=== PATIENT | male | born 1955 | race African-American/Black ===

== ENCOUNTER 2017-05-31 10:20 | Emergency (ER) | payer SELFPAY ==
[~2017-05-31] VITALS: Ht 193 cm; Wt 100.0 kg
[~2017-05-31 10:20] MED LIST: INDO25CA PO
[2017-05-31 10:21] VITALS: BP 134/78; PULSE 88; RESP 16; TEMP 98.8; O2SAT 99
[2017-05-31] MEDS ORDERED: PENI500T PO ×2 (11:20→11:43)
--- NOTE | 2017-05-31 11:25 | PD ---
HPI Chief Complaint: Oral / Dental Pain or Problem Time Seen by Provider: 11:00 Travel History International Travel<30 days: No Contact w/Intl Traveler<30days: No Traveled to known affect area: No History of Present Illness HPI Patient is a 62 y/o M who presents with10/10 throbbing pain at upper and lower molar on right side and left upper for 1 month. Bottom front gums sore. Only mouthwash helps. Hx of a few teeth pulled out for similar reason. Requests voucher for dental care. Endorses headache. Denies fever, chills, dysphagia or hoarseness. PFSH Past Medical History Arthritis: Yes Heart Rhythm Problems: No Cardiac Catheterization: No Cardiovascular Problems: No High Cholesterol: No Congestive Heart Failure: No Diabetes: No Past Surgical History Coronary Artery Bypass Graft: No Tonsillectomy: Yes Family History Family Myocardial Infarction: Yes Social History Alcohol Use: Yes (occasional) Tobacco Use: Yes (Smokes) Substance Use: No Allergies-Medications (Allergen,Severity, Reaction): Coded Allergies: No Known Allergies (Unverified , 11/27/13) Reported Meds & Prescriptions Reported Meds & Active Scripts Active Penicillin V Potassium 500 Mg Tab 500 Mg PO Q8H Indomethacin 25 Mg Cap 25 Mg PO TID 7 Days Take with food, milk, or antacids to decrease stomach adverse effects. Review of Systems Except as stated in HPI: all other systems reviewed are Neg Physical Exam Narrative GENERAL: SKIN: Warm and dry. HEAD: Atraumatic. Normocephalic. EYES: EOM normal. No scleral icterus. No injection or drainage. ENT: No nasal bleeding or discharge. NECK: Trachea midline. No JVD. CARDIOVASCULAR: Regular rate and rhythm. RESPIRATORY: No accessory muscle use. GASTROINTESTINAL: Abdomen non-distended MUSCULOSKELETAL: Normal ROM NEUROLOGICAL: Awake and alert. DENTAL: Lower frontal gums inflammed. Poor dentition noted at tooth number 29,3 , and 14. No signs of abscess, no obvious facial asymmetry, gingivitis. Data Data Last Documented VS Vital Signs Date Time Temp Pulse Resp B/P (MAP) Pulse Ox O2 Delivery O2 Flow Rate FiO2 05/31/17 10:21 98.8 88 16 134/78 (96) 99 Room Air MDM Medical Decision Making Medical Screen Exam Complete: Yes Emergency Medical Condition: Yes Differential Diagnosis Periodontitis v pulpitis v dental caries Narrative Course Patient with obvious poor dentition but no concern for obvious abscess, vitals within normal limits. Will set up with case management to obtain voucher to see dentist. Prescribe penicillin for 10 days to cover for infection. Diagnosis Primary Impression: Pain, dental Patient Instructions: General Instructions Additional Instructions: tylenol for pain, set up a dentist and primary physician, return with any emergent need Med/Other Pt SpecificInfo: Prescription(s) given Scripts Penicillin V Potassium (Penicillin V Potassium) 500 Mg Tab 500 MG PO Q8H for Infection, #10 TAB 0 Refills Prov: Fauzia Pena MD R1 05/31/17 Disposition: 01 DISCHARGE HOME Condition: Stable Fauzia Pena MD R1 May 31, 2017 11:25
== END 2017-05-31 12:39 | disposition home or self-care (01) ==
LOC: NEPE 10:20
DX: K08.89 Other specified disorders of teeth and supporting structures (principal); R51 Headache; Z72.0 Tobacco use; Z87.39 Personal history of other diseases of the musculoskeletal system and connective tissue
CPT/HCPCS: 99283

== ENCOUNTER 2017-10-27 09:13 | Emergency (ER) | payer SELFPAY ==
[~2017-10-27] VITALS: Ht 193 cm; Wt 100.0 kg
[~2017-10-27 09:13] MED LIST changes: +PENI500T PO
[2017-10-27 09:19] VITALS: BP 146/89; PULSE 83; RESP 18; TEMP 97.4; O2SAT 100
--- NOTE | 2017-10-27 09:32 | PD ---
HPI Chief Complaint: Oral / Dental Pain or Problem Time Seen by Provider: 09:23 Travel History International Travel<30 days: No Contact w/Intl Traveler<30days: No Traveled to known affect area: No History of Present Illness HPI 62-year-old male presents to the emergency department with complaint of "abscesses" to his gums that have been on and off for the past month and complaining of left upper dental pain. Denies sore throat, difficulty swallowing, unusual drooling. Denies fever, vomiting. Has been using vinegar, salt and mouthwash for symptom management. Says the abscesses are getting better now. Symptoms are mild in severity. No known aggravating or relieving factors. Has not seen a dentist. No primary care provider. No known allergies. Denies significant past medical history. Has no other medical complaints. No other modifying factors or associated signs and symptoms. PFSH Past Medical History Arthritis: Yes Heart Rhythm Problems: No Cardiac Catheterization: No Cardiovascular Problems: No High Cholesterol: No Congestive Heart Failure: No Diabetes: No Past Surgical History Coronary Artery Bypass Graft: No Tonsillectomy: Yes Social History Alcohol Use: Yes (occasional) Tobacco Use: Yes (Smokes) Substance Use: No Allergies-Medications (Allergen,Severity, Reaction): Coded Allergies: No Known Allergies (Unverified , 11/27/13) Reported Meds & Prescriptions Reported Meds & Active Scripts Active Magic Mouthwash Pediatric/Adult Liq (Lidocaine/Diphenhydr/Alum/Mg/Simeth) 60 Ml Susp 5 Ml SWISH-SWAL Q3HR Each 5mL contains: Diphenydramine 4.5mg, Viscous Lidocaine 2% 10mg, Maalox Advanced Regular Strength 2.7ml Peridex Liq (Chlorhexidine Gluconate (Mouth) Liq) 0.12% Soln 15 Ml SWISH-SPIT BID 10 Days Ibuprofen 800 Mg Tab 800 Mg PO Q6HR PRN Amoxicillin 500 Mg Cap 500 Mg PO BID 10 Days Penicillin V Potassium 500 Mg Tab 500 Mg PO Q8H Indomethacin 25 Mg Cap 25 Mg PO TID 7 Days Take with food, milk, or antacids to decrease stomach adverse effects. Review of Systems Except as stated in HPI: all other systems reviewed are Neg Physical Exam Narrative GENERAL: Well-nourished, well-developed black male patient, in no acute distress ; afebrile, nontoxic-appearing SKIN: Warm and dry. HEAD: Atraumatic. Normocephalic. No facial edema, erythema, tenderness on palpation. No lymphadenopathy. EYES: Pupils equal and round. No scleral icterus. No injection or drainage. ENT: Mucosa pink and moist. No erythema or exudates. No uvular edema. No uvular , palatal, or tonsillar deviation. Airway patent. EARS: Bilateral pinnae and external canals appear within normal limits. Bilateral tympanic membranes without erythema, dullness or perforation. MOUTH: Mucous membranes moist, no lesions, tongue and gums appear normal. Poor dentition with multiple dental cavities throughout. Left upper dentition with tenderness on palpation; I cannot specify which tooth is painful. Gingiva to the right and left lower, and left upper gingiva appear with small patches of lesions possibly consistent with gingivitis or cold sores. Surrounding gingiva is without erythema, edema, drainage. No obvious abscess noted. NECK: Trachea midline. No lymphadenopathy. CARDIOVASCULAR: Regular rate. RESPIRATORY: No accessory muscle use. GASTROINTESTINAL: Rounded. MUSCULOSKELETAL: No obvious deformities. No clubbing. No cyanosis. No edema. NEUROLOGICAL: Awake and alert. Oriented 3. No obvious cranial nerve deficits. Motor grossly within normal limits. Normal speech. PSYCHIATRIC: Appropriate mood and affect; insight and judgment normal. Data Data Last Documented VS Vital Signs Date Time Temp Pulse Resp B/P (MAP) Pulse Ox O2 Delivery O2 Flow Rate FiO2 10/27/17 09:19 97.4 83 18 146/89 (108) 100 Orders Orders Ibuprofen (Motrin) (10/27/17 09:45) Ed Discharge Order (10/27/17 09:36) [facility] Medical Decision Making Medical Screen Exam Complete: Yes Emergency Medical Condition: Yes Medical Record Reviewed: Yes Differential Diagnosis Gingivitis, cold sores, infected dental caries, dental abscesses, dentalgia Narrative Course 62-year-old male with left upper dental pain and lesions of the gingiva that appeared to be either gingivitis or cold sores. Patient is afebrile and nontoxic-appearing. Denies fever, vomiting. Patient provided emergency dental information sheet for follow-up. Instructed patient to follow-up with dentist. Amoxicillin, ibuprofen, Magic mouthwash, Peridex mouth rinse prescribed for home. Instructed patient to follow up with primary care provider. Patient verbalizes understanding and agreement with treatment plan. Patient is medically cleared and stable for discharge. Discussed reasons to return to the emergency department. Patient agrees with treatment plan. The patients vital signs are stable and the patient is stable for outpatient follow-up and treatment. Patient discharged home, stable and in no acute distress. Diagnosis Primary Impression: Pain, dental Additional Impression: Lesion of gingiva Referrals: [facility] Dentist Primary Care Physician Patient Instructions: Dental Abscess (ED), Dental Caries (DC), General Instructions, Gingivitis (ED), Toothache (ED) Additional Instructions: Complete full course of antibiotics Ibuprofen or Tylenol as directed and as needed to reduce pain and inflammation Use Magic mouthwash rinse as directed and as needed to decrease pain Use Peridex as directed for oral hygiene Warm or cool compresses to the affected area Follow-up with dentist Follow-up with primary care provider Return to emergency department immediately with worsening of symptoms Med/Other Pt SpecificInfo: Prescription(s) given Scripts Sntuvfdqixdsydr-Sxrobxyoy-Ujb-Alum-Simeth Liq (Magic Mouthwash Pediatric/Adult Liq) 60 Ml Susp 5 ML SWISH-SWAL Q3HR for Mouth sores, #60 ML 0 Refills Each 5mL contains: Diphenydramine 4.5mg, Viscous Lidocaine 2% 10mg, Maalox Advanced Regular Strength 2.7ml Prov: Tiffany Diaz 10/27/17 Chlorhexidine Gluconate (Mouth) Liq (Peridex Liq) 0.12% Soln 15 ML SWISH-SPIT BID for 10 Days, #300 ML 0 Refills Prov: Tiffany Diaz 10/27/17 Ibuprofen (Ibuprofen) 800 Mg Tab 800 MG PO Q6HR Y for PAIN, #30 TAB 0 Refills Prov: Tiffany Diaz 10/27/17 Amoxicillin (Amoxicillin) 500 Mg Cap 500 MG PO BID for Infection for 10 Days, #20 CAP 0 Refills Prov: Tiffany Diaz 10/27/17 Disposition: 01 DISCHARGE HOME Condition: Stable Tiffany Diaz Oct 27, 2017 09:32
[2017-10-27] MEDS ORDERED: MAGICPED SWISH-SWAL (09:34)
[2017-10-27] MEDS ORDERED: AMOX500C PO (09:34)
[2017-10-27] MEDS ORDERED: IBUP1TAB7 PO (09:34)
[2017-10-27] MEDS ORDERED: PERI0.126 SWISH-SPIT (09:34)
[2017-10-27] MEDS ORDERED: IBUPROFEN 800 MG TAB PO ONE (09:45)
== END 2017-10-27 09:57 | disposition home or self-care (01) ==
LOC: NEPD 09:13
DX: K08.89 Other specified disorders of teeth and supporting structures (principal); K13.70 Unspecified lesions of oral mucosa
CPT/HCPCS: 99283

== ENCOUNTER 2017-11-16 19:05 | Emergency (ER) | payer SELFPAY ==
[~2017-11-16] VITALS: Ht 193 cm; Wt 95.5 kg
[~2017-11-16 19:05] MED LIST changes: +AMOX500C PO; +IBUP1TAB7 PO; +MAGICPED SWISH-SWAL; +PERI0.126 SWISH-SPIT
[2017-11-16 19:25] VITALS: BP 124/73; PULSE 85; RESP 16; TEMP 98.6; O2SAT 100
[2017-11-16] MEDS ORDERED: KETOROLAC TROMETHAMINE 60 MG/2 ML (IM) VIAL IM ONE (19:45)
[2017-11-16] MEDS ORDERED: AMOXICILLIN (TRIHYDRATE) 500 MG CAP PO ONE (19:45)
[2017-11-16] MEDS ORDERED: AMOX500C PO (19:47)
[2017-11-16] MEDS ORDERED: PERI0.126 SWISH-SPIT (19:47)
[2017-11-16] MEDS ORDERED: IBUP1TAB7 PO (19:47)
--- NOTE | 2017-11-16 19:47 | PD ---
HPI Chief Complaint: Oral / Dental Pain or Problem Time Seen by Provider: 19:32 Travel History International Travel<30 days: No Contact w/Intl Traveler<30days: No Traveled to known affect area: No History of Present Illness HPI 62-year-old male presents to the emergency department with complaint of right upper and lower tooth pain that started yesterday. Denies fever, vomiting. Denies sore throat, difficulty swallowing, and usual drooling. Rates pain 10/ 10. Pain is constant. No known relieving or aggravating factors. Has tried Tylenol, BC powder, Orajel with no relief of symptoms. Does not have a dentist. No primary care provided. No known allergies. Denies significant past medical history. Has no other medical complaints. No other modifying factors or associated signs and symptoms. PFSH Past Medical History Medical History: Denies Significant Hx Arthritis: Yes Heart Rhythm Problems: No Cardiac Catheterization: No Cardiovascular Problems: No High Cholesterol: No Congestive Heart Failure: No Diabetes: No Diminished Hearing: No Past Surgical History Coronary Artery Bypass Graft: No Tonsillectomy: Yes Family History Family Myocardial Infarction: Yes Social History Alcohol Use: Yes (occasional) Tobacco Use: Yes (1/2 PPD) Substance Use: No Allergies-Medications (Allergen,Severity, Reaction): Coded Allergies: No Known Allergies (Unverified , 11/27/13) Reported Meds & Prescriptions Reported Meds & Active Scripts Active Ibuprofen 800 Mg Tab 800 Mg PO Q8H PRN Peridex Liq (Chlorhexidine Gluconate (Mouth) Liq) 0.12% Soln 15 Ml SWISH-SPIT BID 10 Days Amoxicillin 500 Mg Cap 500 Mg PO BID 10 Days Magic Mouthwash Pediatric/Adult Liq (Lidocaine/Diphenhydr/Alum/Mg/Simeth) 60 Ml Susp 5 Ml SWISH-SWAL Q3HR Each 5mL contains: Diphenydramine 4.5mg, Viscous Lidocaine 2% 10mg, Maalox Advanced Regular Strength 2.7ml Peridex Liq (Chlorhexidine Gluconate (Mouth) Liq) 0.12% Soln 15 Ml SWISH-SPIT BID 10 Days Ibuprofen 800 Mg Tab 800 Mg PO Q6HR PRN Amoxicillin 500 Mg Cap 500 Mg PO BID 10 Days Penicillin V Potassium 500 Mg Tab 500 Mg PO Q8H Indomethacin 25 Mg Cap 25 Mg PO TID 7 Days Take with food, milk, or antacids to decrease stomach adverse effects. Review of Systems Except as stated in HPI: all other systems reviewed are Neg Physical Exam Narrative GENERAL: Well-nourished, well-developed black male patient, in no acute distress ; afebrile, nontoxic-appearing SKIN: Warm and dry. HEAD: Atraumatic. Normocephalic. No facial edema, erythema, tenderness on palpation. No lymphadenopathy. EYES: Pupils equal and round. No scleral icterus. No injection or drainage. ENT: Mucosa pink and moist. No erythema or exudates. No uvular edema. No uvular , palatal, or tonsillar deviation. Airway patent. EARS: Bilateral pinnae and external canals appear within normal limits. Bilateral tympanic membranes without erythema, dullness or perforation. MOUTH: Mucous membranes moist, no lesions, tongue and gums appear normal. Some edentulous throughout. Multiple dental cavities noted throughout. Poor dentition throughout. Right upper and lower second molars with tenderness on palpation. Surrounding gingiva is without erythema, edema, drainage. No obvious abscess noted. NECK: Trachea midline. No lymphadenopathy. CARDIOVASCULAR: Regular rate. RESPIRATORY: No accessory muscle use. GASTROINTESTINAL: Flat. MUSCULOSKELETAL: No obvious deformities. No clubbing. No cyanosis. No edema. NEUROLOGICAL: Awake and alert. Oriented 3. No obvious cranial nerve deficits. Motor grossly within normal limits. Normal speech. PSYCHIATRIC: Appropriate mood and affect; insight and judgment normal. Data Data Last Documented VS Vital Signs Date Time Temp Pulse Resp B/P (MAP) Pulse Ox O2 Delivery O2 Flow Rate FiO2 11/16/17 19:25 98.6 85 16 124/73 (90) 100 Orders Orders Ketorolac Inj (Toradol Inj) (11/16/17 19:45) Amoxicillin (Trimox) (11/16/17 19:45) Ed Discharge Order (11/16/17 19:44) [facility] Medical Decision Making Medical Screen Exam Complete: Yes Emergency Medical Condition: Yes Medical Record Reviewed: Yes Differential Diagnosis Dentalgia, dental cavities, infected dental caries, gingivitis, dental abscess Narrative Course 62-year-old male with dental pain and multiple dental cavities throughout on physical exam. No facial erythema, edema. Patient is afebrile and nontoxic- appearing. Denies fever, vomiting. Toradol, amoxicillin administered in the ER. Patient provided to emergency dental information sheet for follow-up. Instructed patient to follow-up with dentist. Amoxicillin, Magic mouthwash, ibuprofen prescribed for home. Instructed patient to follow up with primary care provider. Patient verbalizes understanding and agreement with treatment plan. Patient is medically cleared and stable for discharge. Discussed reasons to return to the emergency department. Patient agrees with treatment plan. The patients vital signs are stable and the patient is stable for outpatient follow-up and treatment. Patient discharged home, stable and in no acute distress. Diagnosis Primary Impression: Tooth pain Additional Impression: Dental cavities Referrals: [facility] Dentist Primary Care Physician Patient Instructions: Dental Abscess (ED), Dental Caries (ED), General Instructions, Toothache (ED) Additional Instructions: Complete full course of antibiotics Ibuprofen or Tylenol as directed and as needed to reduce pain and inflammation Use Peridex as directed for oral hygiene Warm or cool compresses to the affected area Follow-up with dentist Follow-up with primary care provider Return to emergency department immediately with worsening of symptoms Med/Other Pt SpecificInfo: Prescription(s) given Scripts Ibuprofen (Ibuprofen) 800 Mg Tab 800 MG PO Q8H Y for PAIN SCALE 1 TO 10, #20 TAB 0 Refills Prov: Tiffany DiazP 11/16/17 Chlorhexidine Gluconate (Mouth) Liq (Peridex Liq) 0.12% Soln 15 ML SWISH-SPIT BID for 10 Days, #300 ML 0 Refills Prov: Tiffany DiazP 11/16/17 Amoxicillin (Amoxicillin) 500 Mg Cap 500 MG PO BID for Infection for 10 Days, #20 CAP 0 Refills Prov: Tiffany DiazP 11/16/17 Disposition: 01 DISCHARGE HOME Condition: Stable Tiffany Diaz Nov 16, 2017 19:47
== END 2017-11-16 20:11 | disposition home or self-care (01) ==
LOC: NEPK 19:05
DX: K08.89 Other specified disorders of teeth and supporting structures (principal); K02.9 Dental caries, unspecified; M19.90 Unspecified osteoarthritis, unspecified site; F17.200 Nicotine dependence, unspecified, uncomplicated
CPT/HCPCS: 96372; 99283; J1885

== ENCOUNTER 2017-12-03 22:07 | Emergency (ER) | payer SELFPAY ==
[~2017-12-03] VITALS: Ht 193 cm; Wt 95.0 kg
[2017-12-03 22:15] VITALS: BP 136/73; PULSE 79; RESP 18; TEMP 98.3; O2SAT 100
[2017-12-03] MEDS ORDERED: DICL75TA PO (22:29)
[2017-12-03] MEDS ORDERED: AMOX500C PO (22:29)
[2017-12-03] MEDS ORDERED: ACETAMINOPHEN/HYDROcodone 325 MG/5 MG TAB PO ONE (22:30)
[2017-12-03] MEDS ORDERED: AMOXICILLIN (TRIHYDRATE) 500 MG CAP PO ONE (22:30)
--- NOTE | 2017-12-03 22:32 | PD ---
HPI Chief Complaint: Oral / Dental Pain or Problem Time Seen by Provider: 22:22 Travel History International Travel<30 days: No Contact w/Intl Traveler<30days: No Traveled to known affect area: No History of Present Illness HPI 62-year-old black male presents emergency department requesting treatment of dental pain. Patient states that he has had dental caries in his right upper and lower jaw for quite some time. He was seen here a few weeks ago but states that he lost his prescription after less than 1 week. He has not seen a dentist since he has been seen. He states he has no money and cannot afford a dentist. Symptoms are moderate. No alleviating factors. Denies fever chills. No facial swelling. No difficulty swallowing. PFSH Past Medical History Arthritis: Yes Heart Rhythm Problems: No Cardiac Catheterization: No Cardiovascular Problems: No High Cholesterol: No Congestive Heart Failure: No Diabetes: No Diminished Hearing: No Tetanus Vaccination: < 5 Years Influenza Vaccination: No Past Surgical History Coronary Artery Bypass Graft: No Tonsillectomy: Yes Family History Family Myocardial Infarction: Yes Social History Alcohol Use: Yes (occasional) Tobacco Use: Yes (1/2 PPD) Substance Use: No Allergies-Medications (Allergen,Severity, Reaction): Coded Allergies: No Known Allergies (Unverified Adverse Reaction, Unknown, 12/03/17) Reported Meds & Prescriptions Reported Meds & Active Scripts Active Diclofenac Sodium DR (Diclofenac Sodium) 75 Mg Tabdr 75 Mg PO BID Amoxicillin 500 Mg Cap 500 Mg PO TID 10 Days Ibuprofen 800 Mg Tab 800 Mg PO Q8H PRN Peridex Liq (Chlorhexidine Gluconate (Mouth) Liq) 0.12% Soln 15 Ml SWISH-SPIT BID 10 Days Amoxicillin 500 Mg Cap 500 Mg PO BID 10 Days Magic Mouthwash Pediatric/Adult Liq (Lidocaine/Diphenhydr/Alum/Mg/Simeth) 60 Ml Susp 5 Ml SWISH-SWAL Q3HR Each 5mL contains: Diphenydramine 4.5mg, Viscous Lidocaine 2% 10mg, Maalox Advanced Regular Strength 2.7ml Peridex Liq (Chlorhexidine Gluconate (Mouth) Liq) 0.12% Soln 15 Ml SWISH-SPIT BID 10 Days Ibuprofen 800 Mg Tab 800 Mg PO Q6HR PRN Amoxicillin 500 Mg Cap 500 Mg PO BID 10 Days Penicillin V Potassium 500 Mg Tab 500 Mg PO Q8H Indomethacin 25 Mg Cap 25 Mg PO TID 7 Days Take with food, milk, or antacids to decrease stomach adverse effects. Review of Systems Except as stated in HPI: all other systems reviewed are Neg Physical Exam Narrative GENERAL: Well-developed, well-nourished in no acute distress. Nontoxic appearing. HEAD: Normocephalic, atraumatic. EYES: Pupils equal round and reactive. Extraocular motions intact. No scleral icterus. No injection or drainage. ENT: TMs clear without erythema. The external auditory canals clear. Nose: clear . Posterior pharynx is pink and moist. No tonsillar edema or exudate. Uvula midline. Airway patent. The patient has diffuse dental caries with periodontal disease and gingivitis. No facial swelling. NECK: Trachea midline.Supple, nontender, moves head freely. No central bony tenderness or spasm. CARDIOVASCULAR: Regular rate and rhythm without murmurs, gallops, or rubs. RESPIRATORY: Clear to auscultation. Breath sounds equal bilaterally. No wheezes , rales, or rhonchi. GASTROINTESTINAL: Abdomen soft, non-tender, nondistended. No hepato-splenomegaly , or palpable masses. No guarding. EXTREMITIES: No clubbing, cyanosis, or edema. No joint tenderness, effusion, or edema noted. BACK: Nontender without deformity or crepitance. No flank tenderness. Data Data Last Documented VS Vital Signs Date Time Temp Pulse Resp B/P (MAP) Pulse Ox O2 Delivery O2 Flow Rate FiO2 12/03/17 22:15 98.3 79 18 136/73 (94) 100 Orders Orders Ed Discharge Order (12/03/17 22:27) Amoxicillin (Trimox) (12/03/17 22:30) Acetamin-Hydrocod 325-5 Mg ([place] 5-325 (12/03/17 22:30) MDM Medical Decision Making Medical Screen Exam Complete: Yes Emergency Medical Condition: Yes Medical Record Reviewed: Yes Differential Diagnosis MDM: Moderate Differential diagnoses: Dental abscess, dental caries, osteitis, cellulitis Narrative Course Patient was given [place] 5 mg and amoxicillin 500 mg p.o. This is dental caries, dentalgia Diagnosis Primary Impression: Dental caries Additional Impression: Dentalgia Patient Instructions: Narcotic given in the ED Additional Instructions: Rest. [place] gargles. [place] oil on cotton balls. Amoxicillin and diclofenac follow-up with a dentist as soon as possible. And return to the ER if any problems. Med/Other Pt SpecificInfo: Prescription(s) given Scripts Diclofenac Sodium DR (Diclofenac Sodium DR) 75 Mg Tabdr 75 MG PO BID, #20 TAB 0 Refills Prov: Amina Ordonez MD 12/03/17 Amoxicillin (Amoxicillin) 500 Mg Cap 500 MG PO TID for Infection for 10 Days, CAP 0 Refills Prov: Amina Ordonez MD 12/03/17 Disposition: 01 DISCHARGE HOME Condition: Stable Larry Rodriguez December 03, 2017 22:32
== END 2017-12-03 22:53 | disposition home or self-care (01) ==
LOC: NEPD 22:07
DX: K02.9 Dental caries, unspecified (principal); F17.210 Nicotine dependence, cigarettes, uncomplicated; Z79.899 Other long term (current) drug therapy
CPT/HCPCS: 99283